=== PATIENT | female | born 1940 | race Caucasian/White ===

== ENCOUNTER → 2016-02-13 | Outpatient (CLI) | payer MEDICARE ==
[2016-02-13 11:51] LABS: MEAN CORPUSCULAR HEMOGLOBIN 29.3 PG (26.0-34.0); MEAN CORPUSCULAR HGB CONC 33.6 g/dL (31.0-37.0); MEAN CORPUSCULAR VOLUME 87 FL (80-100); MEAN PLATELET VOLUME 10.2 FL (6.0-9.5); PLATELET COUNT 256 10^3uL (150-450); WHITE BLOOD COUNT 11.24 10^3uL (4.0-11.0)
[2016-02-13 11:56] LABS: BAND NEUTROPHILS % 0 % (0-6); EOSINOPHILS % 0 % (0-4); LYMPHOCYTES # 1.2 #; MONOCYTES # 0.8 #; MONOCYTES % 7 % (3-11); RBC MORPH NORMAL (NORMAL); SEGMENTED NEUTROPHILS % 82 % (51-67); TOTAL CELLS COUNTED 100
[2016-02-13 18:12] LABS: IRON 68 ug/dL (50-170); UNBOUND IRON CONTENT 192 ug/dl (126-382)
== END ==
LOC: LAB 02-12 14:42
PROVIDERS: ATTEND Internal Medicine Hematology & Oncology
DX: D50.9 Iron deficiency anemia, unspecified (principal)
CPT/HCPCS: 36415; 82728; 83540; 83550; 85007; 85027

== ENCOUNTER → 2016-06-03 | Outpatient (REF) | payer MEDICARE ==
[~2016-06-03] MED LIST: ASPI-586 PO; CALC-68 PO; CYAN100088 PO; FURO40TA4 PO; GARL100T PO; INDA1.25 PO; INSU100V2 SQ; INSU100V32 SQ; LEVO125T PO; LSNP10T PO; METF1000 PO; OMG1KC PO; PRAV40TA PO
== END ==
LOC: LAB 12:47
PROVIDERS: ATTEND Family Medicine
DX: R10.13 Epigastric pain (principal)
CPT/HCPCS: 84484

== ENCOUNTER 2016-06-20 06:28 | Day surgery (SDC) | payer OTHER ==
[2016-06-20] VITALS (13 sets, daily range): BP systolic 111–152; BP diastolic 44–78
[~2016-06-20] VITALS: Ht 167.6 cm; Wt 83.0 kg
[~2016-06-20 06:28] MED LIST changes: +LACTATED RINGERS 1,000 ML IV SCH; +LEVALBUTEROL 1.25 MG/0.5 ML (XOPENEX) NEB INH SCH; +SODIUM CHLORIDE 0.9% NEB SOLN 3 ML VIAL IH SCH; +SODIUM CHLORIDE FLUSH 3 ML SYR IV SCH; +ceFAZolin 1,000 MG in SODIUM CHLORIDE VIAL (PF) 10 ML IV SCH; +ceFAZolin 2,000 MG in SODIUM CHLORIDE VIAL (PF) 20 ML IV SCH
--- OUTSIDE RECORDS SUMMARY | 2016-06-20 06:31 | XMS REPORT | Continuity of Care Document ---
Author Author [facility] Organization [facility] Address Unknown Phone Unavailable Care Team Providers Care Title One Teacher Name Role Phone Brandan Cunningham MD PCP [phone] Insurance Providers Payer Name Policy Number Subscriber Name Relationship Medicare Advantage [id number] Shannan Cruz 16 Self / Same As Patient Advance Directives Directive Response Recorded Date/Time Advanced Directives Yes 01/31/16 6:43am Type Living Will 01/31/16 6:43am Type Durable Power of Senior [employer] 01/31/16 6:43am Problems Active Problems Medical Problem Onset Date Status Colonoscopy Unknown Acute Heme positive stool Unknown Acute Iron (Fe) deficiency anemia Unknown Acute Medications Current Home Medications Medication Dose Units Route Directions Days/Qty Instructions Start Date Insulin Lispro (Insulin Humalog) 100 Unit/1 Ml 100 Unit Sub-Q As Directed 04/20/13 Insulin Glargine,Hum.rec.anlog 100 Unit/1 Ml 50 Unit Sub-Q As Directed 04/20/13 Metformin Hcl (Glucophage) 1,000 Mg 1,000 Mg ORAL Twice A Day Levothyroxine Sodium 125 Mcg 125 Mcg ORAL Daily 04/20/13 Aspirin 81 Mg 81 Mg ORAL Daily 01/31/16 Cyanocobalamin (Vitamin B-12) 1,000 Mcg 1,000 Mcg ORAL Daily [place] 3 Polyunsat Fatty Acids 1,000 Mg 1,000 Mg ORAL Daily 01/31/16 Garlic 100 Mg 100 Mg ORAL Daily 01/31/16 Indapamide 1.25 Mg 1.25 Mg ORAL Daily 01/31/16 Past Home Medications Medication Directions Ordered Status Calcium Citrate/Vitamin D2 1 Each Tablet, 1 Each Oral Daily 04/20/13 Discontinued Furosemide 40 Mg Tablet, 40 Mg Oral Daily 04/20/13 Discontinued Lisinopril (Zestril) 10 Mg Tablet, 10 Mg Oral Daily 04/20/13 Discontinued Pravastatin Sodium 40 Mg Tablet, 40 Mg Oral Bedtime 04/20/13 Discontinued Social History Social History Problem Response Recorded Date/Time Onset Date Status Occupation or Former Occupation retired 01/31/2016 7:12am Query Response Start Date Stop Date Smoking Status Current every day smoker Hospital Discharge Instructions No hospital discharge instructions. Plan of Care Discharge Date 01/31/16 8:32am Prescriptions See Medication Section Functional Status No functional status results. Allergies, Adverse Reactions, Alerts Allergen Type Severity Reaction Status Last Updated Penicillin Allergy Unknown Active 01/30/16 Immunizations No immunization records. Vital Signs Acute Vital Signs Vital Response Date/Time Temperature (Fahrenheit) 98.8 01/31/2016 8:24am Pulse 58 bpm 01/31/2016 8:24am Respirations 18 01/31/2016 8:24am Height 5 ft 6 in Weight 180 lb Body Mass Index 29.0 kg/m^2 Results Laboratory Results Test Name Result Units Flags Reference Collection Date/Time Result Date/ Time Comments Potassium Level 4.6 mmol/L 3.5-5.1 01/31/2016 7:00am 01/31/2016 7:14am Procedures No known history of procedures. Encounters Encounter Location Arrival/Admit Date Discharge/Depart Date Attending Provider Departed [facility] 01/31/16 6:24am 01/31/16 8: 32am CHER HAMMOND MD
[2016-06-20] MEDS ORDERED: ALFENTANIL 1,000 MCG/2 ML AMP IV ONE (06:42)
[2016-06-20] MEDS ORDERED: ROCURONIUM 50 MG/5 ML (ZEMURON) VIAL IV ONE (06:42)
[2016-06-20] MEDS ORDERED: PROPOFOL 20 ML IV ONE (06:42)
[2016-06-20] MEDS ORDERED: ONDANSETRON 2 MG/ML (Z0FRAN) 2 ML VIAL ONE (06:42)
[2016-06-20] MEDS ORDERED: BUPIVACAINE/EPINEPHRINE 0.5%-1:200,000 (MARCAINE) 30 ML VIAL INJ ONE (07:03)
--- NOTE | 2016-06-20 07:12 | NUR ---
0645 aerosol tx given with 1.25 xopenex/nacl.BS clear,dimished HR 76-78 [facility] well [facility] NPC
--- NOTE | 2016-06-20 08:45 | Diagnostic Imaging Report ---
EXAM: Fluoroscopy during procedure. DATE: June 20, 2016. INDICATION: History of laparoscopic cholecystectomy. COMPARISON: None available. FINDINGS: There is contrast opacification of the cystic duct, common bile duct, and proximal intrahepatic bile ducts. There is normal bile duct caliber. There is no identified filling defect. There is no identified abnormal contrast extravasation. Recommend correlation with operative findings. IMPRESSION: 1. Normal caliber visualized bile ducts without identified filling defect. Recommend correlation with intraoperative findings. Dictated by: Dictated on workstation # [id number]
[2016-06-20] MEDS ORDERED: GLYCOPYRROLATE 0.2 MG/ML (ROBINUL) 1 ML VIAL ONE (08:50)
[2016-06-20] MEDS ORDERED: KETOROLAC 60 MG/2 ML (TORADOL) VIAL IM ONE (08:50)
[2016-06-20] MEDS ORDERED: NEOSTIGMINE 1 MG/ML SYRINGE ONE (08:50)
[2016-06-20] MEDS ORDERED: morphine INJ 4 MG/ML 1 ML SYRINGE ONE (09:33)
[2016-06-20] MEDS ORDERED: lisINopril 20 MG (PRINIVIL) TABLET ONE (09:39)
[2016-06-20] MEDS ORDERED: lisINopril 20 MG (PRINIVIL) TABLET PO ONE (09:45)
[2016-06-20] MEDS ORDERED: KETOROLAC 30 MG/ML (TORADOL) 1 ML VIAL IV PRN (10:25)
[2016-06-20] MEDS ORDERED: ONDANSETRON 2 MG/ML (Z0FRAN) 2 ML VIAL IV PRN (10:26)
[2016-06-20] MEDS ORDERED: morphine INJ 4 MG/ML 1 ML SYRINGE IV PRN (10:30)
--- NOTE | 2016-06-20 11:42 | NUR ---
notified Dr. Dale umbilical dressing saturated pt wanting to go home. Dr will visit patient after case they are working on.
--- NOTE | 2016-06-20 11:44 | OPERATIVE REPORT ---
DATE OF OPERATION: 06/20/2016 PRE-OPERATIVE DIAGNOSIS: Symptomatic cholelithiasis POST-OPERATIVE DIAGNOSIS: Gallbladder hydrops OPERATIVE PROCEDURE: Laparoscopic cholecystectomy with intraoperative cholangiogram SURGEON: Beau Dale MD SUPERVISOR DEHYDROGENATION: NAIF Crooks ANESTHESIA: General endotracheal anesthetic INDICATION: The patient is a 75-year-old referred by Dr. Cunningham with symptoms suggesting gallbladder disease and a gallbladder sonogram showing a large stone in the infundibulum. She presents today for elective cholecystectomy. DESCRIPTION OF PROCEDURE: The patient was informed of the risks and benefits and agreed to proceed. She was taken to the operating room and placed supine on a standard operating table. She was administered general endotracheal anesthesia and preoperative IV antibiotics. When properly anesthetized her abdomen was prepped and draped in the standard sterile fashion. The open technique was used to access the peritoneal cavity through a curvilinear incision above the umbilicus and #0 Vicryl stay sutures were placed in the fascia. A 10-mm port was inserted and CO2 was insufflated to 15 mmHg. The Olympus 10-mm 3-D laparoscope was used. There were adhesions just below the fascial incision that obstructed our view initially, and so the trocar was removed and gentle blunt dissection with the gloved finger was used to clear some of these to create a space for the scope. The trocar was replaced and the scope was passed into the abdomen again after insufflation was achieved. We could now enter the right upper quadrant and see the liver. Under direct vision a subxiphoid 5-mm port was placed with the patient in reverse Trendelenburg position, turned to the left. The gallbladder was almost white in color, thickened and markedly distended. Under direct vision a subxiphoid 5-mm port and two subcostal right-sided 5-mm ports were placed. Two subcostal right-sided 5 mm ports were placed. The laparoscopic needle was used to decompress the gallbladder so that it could be manipulated, and when we aspirated it, the liquid was clear mucous. The fundus was then retracted superiorly. There was a large stone impacted at the infundibulum that made manipulation of this part of the gallbladder difficult, and eventually I switched to a 3-prong grasper for that purpose. The peritoneum below the infundibulum was fairly thick, but it was scored with cautery and dissected open without much difficulty. The cystic duct could be easily seen and the triangle of Calot contained, what appeared to be the cystic artery, which oozed slightly and required a clip for control before the cholangiogram was obtained. A cholangiogram was then obtained through the cystic duct, which showed normal intrahepatic and extrahepatic ducts with no filling defects or extravasation. The catheter was removed from the duct. Two clips were placed distally on the cystic duct, one clip proximally and the duct was divided between the proximal clips. Further exposure in the triangle of Calot revealed what appeared to be a larger structure, more consistent with a duct, though I wasn't sure what it represented. It was clearly going into the gallbladder and it prevented us from continuing the gallbladder dissection along the posterior portion to the fundus. A very small cystic artery was seen next to this. This structure was clipped twice proximally, once distally and divided. It looked like it may contain a lumen, and I thought it might represent an accessory cystic duct. It was clear that it was going into the gallbladder. This small cystic artery next to this was clipped twice proximally, once distally and divided between the distal clips. The gallbladder was then easily removed from its attachments to the liver and removed from the abdominal cavity under direct vision using an endobag. I did have to enlarge the skin and fascial incisions at the umbilicus to accommodate the large stone. The trocar was replaced at the umbilicus. Inspection of the gallbladder fossa revealed the clips to be intact on the cystic artery, as well as the cystic duct, and the structure next to the cystic artery. There was no bleeding. I irrigated and aspirated the contents above and below the right lobe of the liver. The upper trocars were then removed under direct vision and no bleeding was seen from the abdominal wall. The CO2 was let out of the abdomen and the umbilical port was removed. The stay sutures were tied to secure the fascial incision at the umbilicus and one additional #0 Vicryl suture was used to completely close this defect. The skin was then closed at all 4 incisions with subcuticular 4-0 Monocryl and dressings were applied. The patient tolerated the procedure without complications. Path is pending.
--- NOTE | 2016-06-20 11:44 | NUR ---
pressure dressing reapplied per Dr. Dale
--- NOTE | 2016-06-20 12:28 | NUR ---
1210 Dr Dale in to see patient. notified that hr was dropping in to the 40's. Dr is ok for patient to go home as long as the hr does not go any lower.
== END 2016-06-20 13:05 | disposition home or self-care (01) ==
LOC: ASC 06:28 → MERGE 09:00 → ASC 13:05
PROVIDERS: ATTEND Surgery
DX: K80.10 Calculus of gallbladder with chronic cholecystitis without obstruction (principal); K82.1 Hydrops of gallbladder; I10 Essential (primary) hypertension; E03.9 Hypothyroidism, unspecified; J44.9 Chronic obstructive pulmonary disease, unspecified; F17.210 Nicotine dependence, cigarettes, uncomplicated; E11.9 Type 2 diabetes mellitus without complications; Z79.4 Long term (current) use of insulin
CPT/HCPCS: 36415; 47563; 74300; 84132; J1885; J2710; J3490; J7120